=== PATIENT | male | born 1960 | race Caucasian/White ===

== ENCOUNTER 2021-04-14 09:04 | Outpatient (RCR) | payer BC, SELFPAY | END 2021-07-06 13:37 | disposition home or self-care (01) | LOC: ANHDMC 09:04 | PROVIDERS: PCP Family Medicine; Visit Provider Physician Assistant | DX: E11.65 Type 2 diabetes mellitus with hyperglycemia (principal); Z71.89 Other specified counseling | CPT/HCPCS: G0108 ==

== ENCOUNTER → 2021-06-30 10:07 | Outpatient (CLI) | payer BC, SELFPAY ==
--- NOTE | ~2021-06-30 | MR_ITS ---
EXAMINATION: MR brain IAC wo/w con DATE: 06/30/2021 11:06 INDICATION: Dizziness and giddiness. TECHNIQUE: Magnetic resonance imaging (MRI) of the brain, brainstem, and internal auditory canals was performed without and with 19 mL MultiHance intravenous contrast. COMPARISON: Neck CT 09/29/2016 FINDINGS: There are scattered areas of nonspecific increased T2-weighted signal intensity in the cere bral white matter, which is within normal limits for the patient's age. There is no intracranial hemo rrhage or acute infarction. There is a chronic 12 mm mass of mildly increased T2-weighted signal inte nsity and contrast enhancement in the gael on the left, consistent with a capillary telangiectasia. T he ventricles are normal in size. Cavum septum callosum and vergae are noted. There is mild mucosal t hickening in the paranasal sinuses. The orbits are normal. The internal auditory canals and inner and middle ears are normal. There are trace bilateral mastoid effusions. IMPRESSION: 1. No etiology for the patient's symptoms. Reviewed, dictated and finalized at location A.
== END ==
PROVIDERS: PCP Family Medicine; Visit Provider Physician Assistant
DX: R42 Dizziness and giddiness (principal)
CPT/HCPCS: 70553; A9577

== ENCOUNTER 2022-04-24 10:58 | Outpatient (CLI) | payer BC, SELFPAY ==
[2022-04-24 11:32] LABS: Kit Draw Collected
== END 2022-04-24 10:59 | disposition home or self-care (01) ==
LOC: ANHGOSHLAB 11:00
PROVIDERS: PCP Emergency Medicine; Visit Provider Clinical Nurse Specialist
DX: E11.9 Type 2 diabetes mellitus without complications (principal)
CPT/HCPCS: 36415

== ENCOUNTER 2022-09-18 11:15 | Outpatient (CLI) | payer BC, SELFPAY ==
[2022-09-18 13:15] LABS: Anion Gap 5 mmol/L (8-16); Blood Urea Nitrogen 15 mg/dL (9-20); Calcium 8.9 mg/dL (8.4-10.2); Carbon Dioxide 26 mmol/L (22-30); Chloride 103 mmol/L (98-107); Estimated Glomerular Filt Rate > 60; Glucose 212 mg/dL (65-110); Potassium 3.8 mmol/L (3.4-5.0); Sodium 134 mmol/L (137-145)
[2022-09-19 00:32] LABS: Hemoglobin A1C 11.3 % (<5.7)
== END 2022-09-18 11:16 | disposition home or self-care (01) ==
LOC: ANHGOSHLAB 11:17
PROVIDERS: PCP Emergency Medicine; Visit Provider Emergency Medicine
DX: E11.69 Type 2 diabetes mellitus with other specified complication (principal); R97.20 Elevated prostate specific antigen [PSA]
CPT/HCPCS: 36415; 80048; 83036

== ENCOUNTER 2023-05-01 08:40 | Outpatient (CLI) | payer BC, SELFPAY ==
[2023-05-01 14:19] LABS: Alanine Aminotransferase 19 U/L (6-50); Albumin Level 4.2 g/dL (3.5-5.1); Alkaline Phosphatase 103 U/L (38-126); Anion Gap 5 mmol/L (4-12); Aspartate Amino Transferase 43 U/L (17-59); Bilirubin,Total 0.7 mg/dL (0.2-1.3); Blood Urea Nitrogen 18 mg/dL (9-20); Calcium 9.3 mg/dL (8.4-10.2); Carbon Dioxide 30 mmol/L (22-30); Chloride 100 mmol/L (98-107); Cholesterol 166 mg/dL (0-200); Estimated Glomerular Filt Rate > 60; Glucose 252 mg/dL (65-110); HDL Direct 42 mg/dL; Sodium 135 mmol/L (137-145); Triglycerides 133 mg/dL (<150)
[2023-05-01 14:30] LABS: LDL Cholesterol Direct 106 mg/dL
[2023-05-01 17:57] LABS: Hemoglobin A1C 11.9 % (<5.7)
[2023-05-03 16:37] LABS: PSA, Free 0.38 ng/mL; PSA, Total 1.2 ng/mL (<=4.0)
== END 2023-05-01 08:41 | disposition home or self-care (01) ==
LOC: ANHGOSHLAB 08:42
PROVIDERS: PCP Emergency Medicine; Visit Provider Emergency Medicine
DX: E11.8 Type 2 diabetes mellitus with unspecified complications (principal); R97.20 Elevated prostate specific antigen [PSA]
CPT/HCPCS: 36415; 80053; 80061; 83036; 84153; 84154

== ENCOUNTER 2023-08-01 11:13 | Outpatient (CLI) | payer BC, SELFPAY ==
[2023-08-01 19:33] LABS: Alanine Aminotransferase 33 U/L (6-50); Albumin Level 4.6 g/dL (3.5-5.1); Alkaline Phosphatase 117 U/L (38-126); Anion Gap 9 mmol/L (4-12); Aspartate Amino Transferase 41 U/L (17-59); Bilirubin,Total 0.9 mg/dL (0.2-1.3); Blood Urea Nitrogen 14 mg/dL (9-20); Calcium 9.3 mg/dL (8.4-10.2); Carbon Dioxide 28 mmol/L (22-30); Chloride 102 mmol/L (98-107); Estimated Glomerular Filt Rate > 60; Glucose 257 mg/dL (65-110); Sodium 139 mmol/L (137-145)
[2023-08-01 19:59] LABS: Hemoglobin A1C 11.2 % (<5.7)
[2023-08-01 20:14] LABS: Creatinine Urine 61.5 mg/dL
[2023-08-01 20:25] LABS: MALB Creatinine Ratio < 9.8 mg/g (0-30); Microalbumin Urine Random < 6.0 mg/L (0-16.7)
== END 2023-08-01 11:14 | disposition home or self-care (01) ==
LOC: ANHGOSHLAB 11:14
PROVIDERS: PCP Emergency Medicine; Visit Provider Emergency Medicine
DX: E11.9 Type 2 diabetes mellitus without complications (principal); Z79.4 Long term (current) use of insulin
CPT/HCPCS: 36415; 80053; 82043; 83036

== ENCOUNTER 2023-10-10 14:33 | Outpatient (CLI) | payer BC, SELFPAY | END 2023-10-10 14:34 | disposition home or self-care (01) | LOC: ANHGOSHLAB 14:34 | PROVIDERS: PCP Emergency Medicine; Visit Provider Emergency Medicine | DX: E11.40 Type 2 diabetes mellitus with diabetic neuropathy, unspecified (principal) | CPT/HCPCS: 36415; 83036 ==

== ENCOUNTER 2023-11-19 15:30 | Outpatient (RCR) | payer BC, SELFPAY | END 2023-11-26 10:08 | disposition home or self-care (01) | LOC: ANHDMC 15:30 | PROVIDERS: PCP Emergency Medicine; Visit Provider Emergency Medicine | DX: E11.9 Type 2 diabetes mellitus without complications (principal); Z79.4 Long term (current) use of insulin; Z71.89 Other specified counseling | CPT/HCPCS: 95249; G0108 ==

== ENCOUNTER 2024-01-16 03:02 | Day surgery (SDC) | payer BC, SELFPAY ==
[2023-12-26 11:03] VITALS: BMI 36.6
[2024-01-16 11:52] VITALS: BP 129/86; PULSE 93; RESP 20; TEMP 36.2; O2SAT 100
[2024-01-16 12:02] LABS: Glucose Point of Care 100 mg/dl (65-105)
[2024-01-16] MEDS: LACTATED RINGERS 1,000 ML 150 ML IV CONT (12:03)
--- NOTE | 2024-01-16 13:13 | WPDANESEPPF ---
Anes - Initial Pre Proc Eval Procedure: Operation Date: 01/16/24 13:00 Proposed Procedures p Esophagogastroduodenoscopy & Colonoscopy - Tony Holloway MD Date/Time: 01/16/24 13:13 Surgeon: Tony Holloway MD Pre Op Diagnosis: ulcerative colitis, GERD Patient Data Age: 63 Gender: M Height: 1.73 m Weight: 104.7 kg Last Vital Signs Temp 36.2 C L 01/16/24 11:52 Pulse 93 01/16/24 11:52 Resp 20 01/16/24 11:52 BP 129/86 01/16/24 11:52 Pulse Ox 100 01/16/24 11:52 O2 Del Method Room Air 01/16/24 11:52 Allergies Allergy/AdvReac Type Severity Reaction Status Date / Time NKDA Allergy Unknown Unknown Uncoded 01/16/24 11:46 Home Medications ?Medication ?Instructions ?Recorded ?Confirmed ?Type aspirin 81 mg tablet,delayed 81 mg PO DAILY 12/24/18 01/16/24 History release omeprazole 40 mg capsule,delayed 40 mg PO DAILY 12/24/18 01/16/24 History release empagliflozin 25 mg tablet 25 mg PO QAM #90 tabs 01/31/23 01/16/24 Rx (Jardiance) blood-glucose meter #1 ea 05/04/23 10/10/23 Rx fluoxetine 40 mg capsule 40 mg PO DAILY #90 caps 07/25/23 01/16/24 Rx blood-glucose sensor (FreeStyle #6 ea 10/10/23 10/10/23 Rx Son 3 Plus Sensor device) insulin glargine-yfgn 100 unit/mL 20 unit subcut QHS 10/10/23 01/16/24 History (3 mL) subcutaneous pen insulin aspart U-100 100 unit/mL See Rx Instructions subcut 10/12/23 01/16/24 Rx (3 mL) subcutaneous pen (Novolog USEASDIRECTD #15 mL FlexPen U-100 Insulin aspart) atorvastatin 40 mg tablet 40 mg PO QHS #90 tabs 10/22/23 01/16/24 Rx metformin 1,000 mg tablet See Rx Instructions .Route 10/22/23 01/16/24 Rx .COMPLEX #180 tabs sulfasalazine 500 mg tablet See Rx Instructions .Route 10/25/23 01/16/24 Rx .COMPLEX #180 tabs blood sugar diagnostic (OneTouch #100 ea 11/05/23 Rx Ultra Test strips) tamsulosin 0.4 mg capsule 0.4 mg PO QHS #90 caps 11/22/23 01/16/24 Rx lancets 30 gauge #100 ea 12/31/23 Rx pen needle, diabetic 31 gauge x #100 ea 01/14/24 Rx 5/16 (Droplet Pen Needle) Laboratory Tests 01/16/24 11:57 POC Capillary Glucose 100 mg/dl (65-105) Patient hx anesthesia problems: none Family hx anesthesia problems: none Results Review: All pre-operative results and documents have been reviewed as part of the pre-operative evaluation. [facility] Past Medical History Medical History GERD with esophagitis Type 2 diabetes mellitus with complication, without long-term current use of insulin Social History Social History Social History: Caffeine-coffee Smoking status: Never smoker Alcohol intake: current Drinks per week: 1 Alcohol use details: rare Substance use: never Substance use type: does not use Lack of Transportation: No Lack of Food: Never True Current Housing: I Have Housing Concerned About Future Housing: No Difficulty Paying Gas/Electric Bills: No Difficulty Paying for Meds: No Currently Unemployed: No Education: Grade School Difficulty w/ Childcare or Family Care: No Living arrangements: alone Occupation/Education: occupation Gender identity (if verbalized by the patient): Male Additional gender identity comments: Self-employed Sexual Orientation (if Verbalized by the Patient): Straight or Heterosexual Spiritual care concerns: No Agree to blood products: Yes Anes - Eval Final PreProcedure Day of Procedure 01/16/24 13:13 Patient weight: obese Heart: regular rate and rhythm Lungs: clear to auscultation Airway: Mallampati scale class II Neurological: alert and oriented Last oral intake: >/= 8 hours ASA classification: III Emergent: no Anesthetic plan: proceed Anesthesia type and monitoring: general GIVS and standard monitoring Results Review: All pre-operative results and documents have been reviewed as part of the pre-operative evaluation. Informed Consent: The patient's anesthetic plan and its attendant risks and benefits were discussed with the patient/family/POA. Questions were solicited and answers provided to the satisfaction of the patient/family/POA.
--- NOTE | 2024-01-16 13:40 | P.HP_ITS ---
H&P: HPI History of Present Illness Date/Time: 01/16/24 13:40 Chief Complaint: Ulcerative colitis. Narrative: This patient has been diagnosed with altered colitis in 1998, and has been taking sulfasalazine for maintenance with no flare ups, and currently asymptomatic from a GI standpoint, denying rectal bleeding, diarrhea, abdominal pain, urgency or tenesmus. He also complains of occasional dyspepsia. He is referred for EGD and colonoscopy. Review of Systems Review of Systems: All systems reviewed & are unremarkable except as noted in HPI and below PMFSH Past Medical History Medical History GERD with esophagitis Type 2 diabetes mellitus with complication, without long-term current use of insulin Social History Social History Social History: Caffeine-coffee Smoking status: Never smoker Alcohol intake: current Drinks per week: 1 Alcohol use details: rare Substance use: never Substance use type: does not use Lack of Transportation: No Lack of Food: Never True Current Housing: I Have Housing Concerned About Future Housing: No Difficulty Paying Gas/Electric Bills: No Difficulty Paying for Meds: No Currently Unemployed: No Education: Grade School Difficulty w/ Childcare or Family Care: No Living arrangements: alone Occupation/Education: occupation Gender identity (if verbalized by the patient): Male Additional gender identity comments: Self-employed Sexual Orientation (if Verbalized by the Patient): Straight or Heterosexual Spiritual care concerns: No Agree to blood products: Yes Meds Home Medications and Allergies Home Medications ?Medication ?Instructions ?Recorded ?Confirmed ?Type aspirin 81 mg tablet,delayed 81 mg PO DAILY 12/24/18 01/16/24 History release omeprazole 40 mg capsule,delayed 40 mg PO DAILY 12/24/18 01/16/24 History release empagliflozin 25 mg tablet 25 mg PO QAM #90 tabs 01/31/23 01/16/24 Rx (Jardiance) blood-glucose meter #1 ea 05/04/23 10/10/23 Rx fluoxetine 40 mg capsule 40 mg PO DAILY #90 caps 07/25/23 01/16/24 Rx blood-glucose sensor (FreeStyle #6 ea 10/10/23 10/10/23 Rx Son 3 Plus Sensor device) insulin glargine-yfgn 100 unit/mL 20 unit subcut QHS 10/10/23 01/16/24 History (3 mL) subcutaneous pen insulin aspart U-100 100 unit/mL See Rx Instructions subcut 10/12/23 01/16/24 Rx (3 mL) subcutaneous pen (Novolog USEASDIRECTD #15 mL FlexPen U-100 Insulin aspart) atorvastatin 40 mg tablet 40 mg PO QHS #90 tabs 10/22/23 01/16/24 Rx metformin 1,000 mg tablet See Rx Instructions .Route 10/22/23 01/16/24 Rx .COMPLEX #180 tabs sulfasalazine 500 mg tablet See Rx Instructions .Route 10/25/23 01/16/24 Rx .COMPLEX #180 tabs blood sugar diagnostic (OneTouch #100 ea 11/05/23 Rx Ultra Test strips) tamsulosin 0.4 mg capsule 0.4 mg PO QHS #90 caps 11/22/23 01/16/24 Rx lancets 30 gauge #100 ea 12/31/23 Rx pen needle, diabetic 31 gauge x #100 ea 01/14/24 Rx 5/16 (Droplet Pen Needle) Allergies Allergy/AdvReac Type Severity Reaction Status Date / Time NKDA Allergy Unknown Unknown Uncoded 01/16/24 11:46 Vital Signs Vital Signs - 24 hr 01/16/24 11:52 Temperature 97.2 F L Pulse Rate 93 Respiratory Rate 20 Blood Pressure 129/86 Pulse Oximetry 100 Oxygen Delivery Room Air Exam Const: General: cooperative and healthy appearing Resp: Effort & Inspection: normal respiratory effort and able to speak in complete sentences Auscultation: clear to auscultation bilaterally Cardio: Rate: regular rate Rhythm: regular rhythm GI: Inspection: normal to inspection GI Palp: No No hepatosplenomegaly present Auscultation: normal bowel sounds Rectal Exam: deferred Skin: General skin exam: normal color Psych: Appearance: grossly normal Mental Status: mental status grossly normal Assessment and Plan Assessment and plan (1) Ulcerative colitis: Qualifiers: Ulcerative colitis location: unspecified ulcerative colitis location Digestive disease complication type: unspecified complication Qualified Code (s): K51.919 - Ulcerative colitis, unspecified with unspecified complications Code(s): K51.90 - Ulcerative colitis, unspecified, without complications Status: Acute Assessment and Plan: The patient is deemed a good candidate for the procedures. Consent signed. Will proceed. (2) GERD with esophagitis: Qualifiers: Esophagitis bleeding: without hemorrhage Qualified Code(s): K21.00 - Gastro-esophageal reflux disease with esophagitis, without bleeding Code(s): K21.0 - Gastro-esophageal reflux disease with esophagitis Status: Acute
[2024-01-16] MEDS: BENZOCAINE (*SP) 60 ML SPRAY CAN (HURRICAINE) 1 SPRAY MUCOUS MEM (13:56)
--- NOTE | 2024-01-16 14:00 | SUR.OPER ---
EGD:[id number] COLON:1412
[2024-01-16 14:41] VITALS: BP 100/67; PULSE 86; RESP 25; O2SAT 100
[2024-01-16 14:51] VITALS: BP 119/73; PULSE 80; RESP 25; O2SAT 100
[2024-01-16 15:01] VITALS: BP 123/82; PULSE 80; RESP 25; O2SAT 100
== END 2024-01-16 15:18 | disposition home or self-care (01) ==
PROVIDERS: Referring Provider Nurse Practitioner Family; Visit Provider Internal Medicine Gastroenterology
PROC: 0DJ08ZZ Inspection of Upper Intestinal Tract, Via Natural or Artificial Opening Endoscopic (ICD-10-PCS; CPT 43235; principal; 2024-01-16 13:00)
DX: K51.914 Ulcerative colitis, unspecified with abscess (principal); K21.00 Gastro-esophageal reflux disease with esophagitis, without bleeding; K62.89 Other specified diseases of anus and rectum; E11.9 Type 2 diabetes mellitus without complications; E66.9 Obesity, unspecified; Z68.35 Body mass index [BMI] 35.0-35.9, adult; Z79.82 Long term (current) use of aspirin; Z79.84 Long term (current) use of oral hypoglycemic drugs; Z79.4 Long term (current) use of insulin
CPT/HCPCS: 45380; 82948; 88305; J2003; J2704; J7120

== ENCOUNTER 2024-02-28 13:51 | Outpatient (CLI) | payer BC, SELFPAY ==
[2024-02-28 19:25] LABS: Creatinine Urine 214.9 mg/dL
[2024-02-28 19:32] LABS: Anion Gap 9 mmol/L (4-12); Blood Urea Nitrogen 14 mg/dL (9-20); Calcium 8.8 mg/dL (8.4-10.2); Carbon Dioxide 28 mmol/L (22-30); Chloride 101 mmol/L (98-107); Estimated Glomerular Filt Rate > 60; Glucose 202 mg/dL (65-110); Potassium 4.3 mmol/L (3.4-5.0); Sodium 138 mmol/L (137-145)
[2024-02-28 19:35] LABS: MALB Creatinine Ratio 3.9 mg/g (0-30); Microalbumin Urine Random 8.3 mg/L (0-16.7)
[2024-02-28 20:50] LABS: Hemoglobin A1C 7.1 % (<5.7)
== END 2024-02-28 13:52 | disposition home or self-care (01) ==
LOC: ANHGOSHLAB 13:52
PROVIDERS: PCP Internal Medicine; Visit Provider Clinical Nurse Specialist
DX: R42 Dizziness and giddiness (principal)
CPT/HCPCS: 36415; 80048; 82043; 82607; 83036; 84443

== ENCOUNTER 2024-04-01 10:28 | Outpatient (RCR) | payer BC, MEDICAID, SELFPAY | END 2024-06-16 09:30 | disposition home or self-care (01) | LOC: ANHDMC 10:28 | PROVIDERS: PCP Internal Medicine; Visit Provider Emergency Medicine | DX: E11.65 Type 2 diabetes mellitus with hyperglycemia (principal); Z79.4 Long term (current) use of insulin; Z71.89 Other specified counseling | CPT/HCPCS: G0108 ==